=== PATIENT | male | born 1980 ===

== ENCOUNTER 2021-12-26 02:53 | Emergency (ER) | payer MEDICAID ==
[~2021-12-26] VITALS: Ht 167.6 cm; Wt 63.6 kg
[2021-12-26 02:59] VITALS: BP 150/88
== END 2021-12-26 05:40 | disposition left against medical advice (07) ==
LOC: EMS 02:59
DX: Z53.21 Procedure and treatment not carried out due to patient leaving prior to being seen by health care provider (principal)